=== PATIENT | female | born 1980 | race Two or more races ===

== ENCOUNTER → 2022-05-27 | Outpatient (CLI) | payer OTHER ==
--- NOTE | 2022-05-27 16:55 | DIREP ---
PROCEDURE:NM GALLBLADDER SCAN/KHAN COMPARISON:None. INDICATIONS:RUQ PAIN TECHNIQUE:After obtaining the patient's consent, radiopharmaceutical was injected and images obtained sequentially for one hour. PHARMACEUTICAL(S):9.4 mCi Tc-99m LIZ derivative. FINDINGS: LIVER:Normal. BILIARY DUCTS:Normal. Visualized at 10 minutes. GALLBLADDER:Normal. Visualized at 10 minutes INTESTINE:Normal. Visualized at 20 minutes EJECTION FRACTION:96 %. Normal is greater than 50% at 15-20 minutes, EF between 35%-50% is equivocal. Fatty meal administered, asymptomatic CONCLUSION:Normal examination Dictated by: Sidney Arciniega MD on 05/27/2022 at 04:53 PM
== END | disposition home or self-care (01) ==
LOC: RAD 13:38
DX: R10.11 Right upper quadrant pain (principal)
CPT/HCPCS: 78227; A9537